=== PATIENT | male | born 1930 | race Caucasian/White ===

== ENCOUNTER 2017-09-12 10:52 | Inpatient (IN) | payer MEDICARE ==
[~2017-09-12] VITALS: Ht 180.3 cm; Wt 91.8 kg
[~2017-09-12 10:52] MED LIST: CALC-128 PO; CETI10CA PO; CETI10TA22 PO; FERR325T58 PO; MULT-658 PO; VITA400C36 PO
--- NOTE | 2017-09-12 11:32 | PHYS DOC ---
Past Medical History Past Medical History: No Pertinent History Past Surgical History: Other Additional Past Surgical Histo: right knee. suprapubic catheter, cataracts Alcohol Use: None Drug Use: None Adult General Chief Complaint Chief Complaint: MECHANICAL FALL HPI HPI Patient is a 87 year old male who presents with accidental fall while doing lawn. Patient states he turned and tripped and landed on his right hip and thigh. Reports pain to his right femur. No attempted weightbearing secondary to the pain. No motor weakness or loss of sensation. Patient denies hitting his head or neck. Denies headache, neck pain. He is not currently on anticoagulation therapy. Patient arrives by EMS. Fentanyl given prior to ED arrival [] Review of Systems Review of Systems ROS as per HPI. All other ROS are negative. Allergies Allergies Allergies Coded Allergies Type Severity Reaction Last Updated Verified Sulfa (Sulfonamide Antibiotics) Allergy Intermediate Itching 10/04/15 Yes Physical Exam Physical Exam Constitutional: Well developed, well nourished, no acute distress, non-toxic appearance. [] HENT: Normocephalic, atraumatic, bilateral external ears normal, oropharynx moist, no oral exudates, nose normal. [] Eyes: PERRLA, EOMI, conjunctiva normal, no discharge. [] Neck: Normal range of motion, no tenderness, supple, no stridor. [] Cardiovascular:Heart rate regular rhythm, no murmur [] Lungs & Thorax: Bilateral breath sounds clear to auscultation [] Abdomen: Bowel sounds normal, soft, no tenderness, no masses, no pelvic bony tenderness.. [] Skin: Warm, dry, no erythema, no rash. [] Back: No tenderness, no CVA tenderness. [] Extremities: Right lower extremity, no deformity, rotation or shortening. Pain/ tenderness to right anterior lateral thigh. No knee pain tenderness or deformity.. [] Neurologic: Alert and oriented X 3, right lower extremity, no motor weakness or loss of sensation. [] Psychologic: Affect normal, judgement normal, mood normal. [] Current Patient Data Vital Signs Vital Signs Date Time Temp Pulse Resp B/P (MAP) Pulse Ox O2 Delivery O2 Flow Rate FiO2 09/12/17 12:30 61 17 94 09/12/17 11:02 97.4 154/79 (104) Room Air 97.4 EKG EKG [] Radiology/Procedures Radiology/Procedures [Pelvis:/Right hip: Minimally displaced right intertrochanteric fracture. Chest x-ray: No acute cardiopulmonary disease on preliminary ED read] Course & Med Decision Making Course & Med Decision Making Pertinent Labs and Imaging studies reviewed. (See chart for details) [Dr. Weiss to admit. Dr. Mullins to see in consult.] Dragon Disclaimer Dragon Disclaimer This electronic medical record was generated, in whole or in part, using a voice recognition dictation system. Departure Departure Impression: Primary Impression: Hip fracture, right Additional Impression: UTI (urinary tract infection) Disposition: ADMITTED INPATIENT Admitting Physician: Buck Weiss Condition: STABLE Referrals: BUCK WEISS MD (PCP) Problem Qualifiers MAYANK DELATORRE DO Sep 12, 2017 11:32
--- NOTE | 2017-09-12 12:17 | RAD ---
Examination: 2 views of the right hip and right femur History: History of fall, hip pain Comparison: None available Findings: Minimally displaced intertrochanteric fracture right femur. The bilateral femoral heads are within the acetabula. Osseous demineralization limits evaluation Impression: Mild displaced intertrochanteric fracture right femur.
--- NOTE | 2017-09-12 12:19 | RAD ---
Examination: Single frontal view the chest. History: History of fall, fracture. Comparison: 04/01/2016 Findings The cardiomediastinal silhouette grossly appears unchanged. There is no acute infiltrate or visualize pneumothorax. Tortuous appearing aorta. Impression: No acute cardiopulmonary findings.
--- NOTE | 2017-09-12 13:05 | EKG ---
[facility] [address] [place] [address] Test Date: 2017-09-12 Test Time: 13:02:41 Pat Name: CAROLINA XIE Department: Room: Gender: M Data Abstractor: : 1930 Requested By: MAYANK DELATORRE Order Number: [id number] Reading MD: Shelbi Garcia Measurements Intervals [place] Rate: 64 P: ME: QRS: -168 QRSD: 96 T: 129 QT: 416 QTc: 433 Interpretive Statements SINUS RHYTHM, VENTRICULAR PREMATURE COMPLEX(ES), TRIGEMINY ABNORMAL RIGHT SUPERIOR AXIS DEVIATION QRS(T) CONTOUR ABNORMALITY CONSISTENT WITH HIGH LATERAL INFARCT AGE UNDETERMINED ABNORMAL ECG Electronically Signed On 09-14-2017 15:28:52 CDT by Shelbi Garcia
[2017-09-12] MEDS ORDERED: ONDANSETRON PF 4 MG/2 ML VIAL. IV PRN ×2 (13:15→14:45)
[2017-09-12] MEDS ORDERED: MORPHINE SULFATE 2 MG/ML DISP.SYRIN. IV PRN ×2 (13:15→14:45)
[2017-09-12 13:31] LABS: BILIRUBIN,URINE NEGATIVE (NEG); GLUCOSE,URINE NEGATIVE (NEG); NITRITE,URINE NEGATIVE (NEG); PH,URINE 6.5; PROTEIN,URINE 100 mg/dL (NEG-TRACE); UROBILINOGEN,URINE 0.2 mg/dL (0.2 mg/dL)
[2017-09-12 13:32] LABS: BASO % 0 % (0-3); EOS % 1 % (0-3); LYMPH # 0.7 x10^3/uL (1.0-4.8); LYMPH % 6 % (24-48); MEAN CORPUSCULAR HEMOGLOBIN 30 pg (25-35); MEAN CORPUSCULAR HGB CONC 33 g/dL (31-37); MEAN CORPUSCULAR VOLUME 89 fL (79-100); MONO % 6 % (0-9); NEUT % 87 % (31-73); PLATELET COUNT 149 x10^3/uL (140-400); RED CELL DISTRIBUTION WIDTH 15.4 % (11.5-14.5); WHITE BLOOD COUNT 10.5 x10^3/uL (4.0-11.0)
[2017-09-12 13:38] LABS: WBC,URINE TNTC /HPF (0-4)
[2017-09-12 13:39] LABS: BACTERIA,URINE MODERATE /HPF (0-FEW)
[2017-09-12 13:40] LABS: RBC,URINE FOBS /HPF (0-2)
[2017-09-12 13:43] LABS: INR 1.1 (0.8-1.1); PROTHROMBIN TIME PATIENT 13.6 SEC (11.7-14.0)
[2017-09-12 13:45] LABS: CALCIUM 9.3 mg/dL (8.5-10.1); CREATININE 1.9 mg/dL (0.7-1.3); GFR 33.6; POTASSIUM 4.5 mmol/L (3.5-5.1)
[2017-09-12 13:51] LABS: ALBUMIN 3.6 g/dL (3.4-5.0); ALBUMIN/GLOBULIN RATIO 0.8 (1.0-1.7); TOTAL BILIRUBIN 0.5 mg/dL (0.2-1.0); TOTAL PROTEIN 7.9 g/dL (6.4-8.2)
[2017-09-12 13:56] LABS: % EOS 1 % (0-5); PLT ESTIMATE ADEQUATE (ADEQUATE)
[2017-09-12] MEDS ORDERED: BUPIVACAINE-EPI 0.25%-1:200000 50 ML VIAL. ONE (14:01)
[2017-09-12] MEDS ORDERED: IV RINGERS,LACTATED 1000ML 1,000 ML IV SCH (14:40)
[2017-09-12] MEDS ORDERED: fentaNYL PF VIAL 100 MCG/2 ML VIAL IV PRN ×2 (14:45)
[2017-09-12] MEDS ORDERED: PROCHLORPERAZINE 10 MG/2 ML VIAL. IV PRN (14:45)
[2017-09-12] MEDS ORDERED: LIDOCAINE 1% PF 2 ML VIAL. ID PRN (14:45)
[2017-09-12] MEDS ORDERED: HYDROmorphone 2 MG/ML VIAL IV PRN (14:45)
[2017-09-12] MEDS ORDERED: SEVOFLURANE 16 TO 30 MINUTES. IH ONE (15:26)
[2017-09-12] MEDS ORDERED: fentaNYL PF VIAL 100 MCG/2 ML VIAL ONE (15:26)
[2017-09-12] MEDS ORDERED: PROPOFOL 20 ML IV ONE (15:27)
[2017-09-12] MEDS ORDERED: LIDOCAINE 2% PF Vial for OR 5 ML VIAL. ONE (15:27)
[2017-09-12] MEDS ORDERED: ceFAZolin SODIUM 1 GM in IV DEXTROSE 5% 50 ML IV PRN (15:45)
[2017-09-12] MEDS ORDERED: PHENYLEPHRINE in 0.9% NACL PF 1 MG/10 ML DISP.SYRIN. IV ONE (16:04)
[2017-09-12] MEDS ORDERED: DEXAMETHASONE SOD PHOS 20 MG/5 ML VIAL. ONE (16:04)
[2017-09-12] MEDS ORDERED: ONDANSETRON PF 4 MG/2 ML VIAL. ONE (16:04)
--- NOTE | 2017-09-12 17:36 | PDOC4 ---
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 COMPLICATIONS: none INDICATIONS: The patient is an 87 year old male who fell sustaining an intertrochanteric hip fracture. The patient and I and the patient's family discussed the risks and benefits and alternatives of treatment. The alternative for treatment is bedrest until the fracture feels well, which is generally not well tolerated due to the risks of bedsores, blood clots, pneumonia, and deconditioning. I recommended intramedullary nailing, and I talked to them about the potential risks of this including risks of bleeding, infection, blood clots, malunion, nonunion, hardware failure, or other potential surgical or anesthetic complications. All of their questions were answered about surgery and they desired to proceed. A written consent was obtained. OPERATIVE PROCEDURE: The patient was identified in the preoperative holding area. The correct hip was marked by myself. The patient was taken to the operating room, where they were placed under general anesthesia. Preoperative antibiotics were given IV. The HANA table was used and the well leg was placed in a padded lithotomy leg frias, while the foot of the fractured leg was placed in a well padded traction foot boot. A time-out procedure was performed. The image intensifier was used, and a preliminary reduction was obtained at the fracture site. The hip area was prepped and draped in the normal sterile fashion with chloraprep and an ioban shower curtain style drape. 4 blue sterile OR towels were applied to the leg with windy prior to the ioban drape being placed. An incision was made over the superior aspect of the greater trochanter. A guide pin was placed at the tip of the greater trochanter and a starting awl was used to open the proximal canal. A ball tipped guidewire was then placed in the canal, and the fracture remained adequately reduced. The femur was reamed 2 mm over the size of the nail to a 13 mm reamer to approximately the level of the femur just past the lesser trochanter. The proximal piece was reamed with the 15 mm opening reamer. The intramedullary nail was attached to a guide and then was placed down the canal and positioned appropriately using the image intensifier. Using the targeting guide, a second incision was placed on the lateral aspect of the femur and a guide pin was placed into the center of the femoral head under fluoroscopic guidance. The guide wire was measured and the tunnel was reamed for an appropriate length lag screw under fluoroscopy, ensuring not to puncture the femoral head. The lag screw was placed, and approximately 10mm of compression was obtained after releasing traction from the HANA table, watching the fracture compress under image intensification. A proximal locking screw was then placed in the lag screw. Finally, a distal cross lock screw was placed using the triple sleeve device through the guide. Screw position and length were confirmed with the image intensifier. Satisfactory reduction and fixation were confirmed using the image intensifier in multiple planes. Copius irrigation was used and the incision was closed in layers with 0-vicryl for the fascia where possible, and 3-0 monocryl interrupted buried for deep tissues. A prineo was used for skin. 50 cc of 0.25% marcaine with epi was injected for pain relief into the incisions. A sterile dressing was applied and the patient was gently transferred from the fracture table back to the OR bed. The patient's leg length and rotation were checked prior to extubation. The patient was awaken in the OR and was transferred to the PACU in stable condition. ELISHA TAI MD Sep 12, 2017 17:36
[2017-09-12 17:40] VITALS: BP 137/80
[2017-09-12] MEDS: ACETAMINOPHEN 500 MG TABLET PO SCH (18:00)
[2017-09-12] MEDS: IV NORMAL SALINE 1000ML BAG 1,000 ML IV SCH (18:08)
[2017-09-12 19:00] VITALS: BP 102/66
[2017-09-12] MEDS: HEPARIN PF for SUB-Q USE 5,000 UNIT/0.5 ML VIAL. SQ SCH (22:00)
--- NOTE | 2017-09-12 22:15 | PDOC2 ---
CONSULT Date of Consult Date of Consult DATE: 09/12/17 TIME: 16:00 Reason for Consult Reason for Consult: right hip fracture Identification/Chief Complaint Chief Complaint right hip pain Problems: Source Source: Chart review, Patient History of Present Illness Reason for Visit: The patient is an 87 year old male who fell today while mowing his lawn. He was unable to ambulate and was taken to the ER, Xrays revealed a displaced right intertrochanteric femur fracture. Past Medical History Past Medical History urinary issues Past Surgical History Past Surgical History suprapubic catheter Family History Family History noncontributory Social History Social History lives alone, the patient's recently. No ALCOHOL: none Drugs: None Lives: Alone Current Problem List Problem List Problems Medical Problems: (1) UTI (urinary tract infection) Status: Acute Current Medications Current Medications Current Medications Ondansetron HCl (Zofran) 4 mg PRN Q8HRS PRN IV NAUSEA/VOMITING; Start at 13:15; Stop 09/13/17 at 13:14 Morphine Sulfate 2 mg PRN Q2HR PRN IV PAIN; Start 09/12/17 at 13:15; Stop at 13:14 Ondansetron HCl (Zofran) 4 mg PRN Q6HRS PRN IV NAUSEA/VOMITING; Start at 14:45; Stop 09/13/17 at 14:44 Fentanyl Citrate (Fentanyl 2ml Vial) 25 mcg PRN Q5MIN PRN IV MILD PAIN; Start 09/12/17 at 14:45; Stop 09/13/17 at 14:44 Fentanyl Citrate (Fentanyl 2ml Vial) 50 mcg PRN Q5MIN PRN IV MODERATE PAIN; Start 09/12/17 at 14:45; Stop 09/13/17 at 14:44 Morphine Sulfate 1 mg PRN Q10MIN PRN IV SEVERE PAIN; Start 09/12/17 at 14:45; Stop 09/13/17 at 14:44 Ringer's Solution 1,000 ml @ 30 mls/hr Q24H IV ; Start 09/12/17 at 14:40; Stop 09/13/17 at 02:39 Lidocaine HCl (Xylocaine-Mpf 1% Vial) 2 ml 1X PRN PRN ID IV START; Start 09/12 at 14:45; Stop 09/13/17 at 14:44 Hydromorphone HCl (Dilaudid) 0.5 mg PRN Q10MIN PRN IV SEV PAIN, Second choice; Start 09/12/17 at 14:45; Stop 09/13/17 at 14:44 Prochlorperazine Edisylate (Compazine) 5 mg PACU PRN PRN IV NAUSEA, MRX1; Start 09/12/17 at 14:45; Stop 09/13/17 at 14:44 Bupivacaine HCl/ Epinephrine Bitart (Marcaine-Epi 0.25%-1:838366) 50 ml STK-MED ONCE .ROUTE Last administered on 09/12/17t 17:12; Start 09/12/17 at 14:01; Stop 09/12/17 at 15:03; Status DC Fentanyl Citrate (Fentanyl 2ml Vial) 100 mcg STK-MED ONCE .ROUTE ; Start at 15:26; Stop 09/12/17 at 15:27; Status DC Sevoflurane (Ultane) 15 ml STK-MED ONCE IH ; Start 09/12/17 at 15:26; Stop at 15:27; Status DC Propofol 20 ml @ As Directed STK-MED ONCE IV ; Start 09/12/17 at 15:27; Stop 09/12/17 at 15:28; Status DC Lidocaine HCl (Lidocaine Pf 2% Vial) 5 ml STK-MED ONCE .ROUTE ; Start 09/12/17 at 15:27; Stop 09/12/17 at 15:28; Status DC Cefazolin Sodium 50 ml @ As Directed STK-MED ONCE IV ; Start 09/12/17 at 15:35 ; Stop 09/12/17 at 15:36; Status DC Cefazolin Sodium 1 gm/Dextrose 50 ml @ 100 mls/hr 1X PREOP PRN IV PRIOR TO PROCEDURE; Start 09/12/17 at 15:45; Status UNV Cefazolin Sodium 50 ml @ 100 mls/hr 1X ONCE IV Last administered on t 15:50; Start 09/12/17 at 16:00; Stop 09/12/17 at 16:29; Status DC Phenylephrine HCl 1 mg STK-MED ONCE IV ; Start 09/12/17 at 16:04; Stop at 16:05; Status DC Dexamethasone Sodium Phosphate (Decadron) 20 mg STK-MED ONCE .ROUTE ; Start at 16:04; Stop 09/12/17 at 16:05; Status DC Ondansetron HCl (Zofran) 4 mg STK-MED ONCE .ROUTE ; Start 09/12/17 at 16:04; Stop 09/12/17 at 16:05; Status DC Cefazolin Sodium 1 gm/Sodium Chloride 50 ml @ 100 mls/hr Q8H IV ; Start at 00:00; Stop 09/13/17 at 08:29 Heparin Sodium (Porcine) (Heparin Sq) 5,000 unit Q8HRS SQ ; Start 09/12/17 at 22:00 Tramadol HCl (Ultram) 50 mg PRN Q6HRS PRN PO PAIN; Start 09/12/17 at 17:30 Acetaminophen (Tylenol) 1,000 mg Q6HRS PO ; Start 09/12/17 at 18:00 Sodium Chloride 1,000 ml @ 125 mls/hr Q8H IV ; Start 09/12/17 at 18:08; Stop 09/13/17 at 06:07 Active Scripts Active Reported Calcium 500 Mg Tablet (Calcium Carb&Cit/Mag12/Vit D3) 1 Each Tablet 1 Each PO Centrum Silver Tablet (Multivits-Min/Fa/Lycopene/Lut) 1 Each Tablet 1 Each PO DAILY Allergies Allergies: Coded Allergies: Sulfa (Sulfonamide Antibiotics) (Verified Allergy, Intermediate, Itching, 09/12/17) ROS General: No: Chills, Night Sweats, Fatigue, Malaise, Appetite, Other Musculoskeletal: Yes Gait Disturbance, Yes Joint Pain, Yes Joint Swelling Physical Exam General: Alert, Oriented X3, Cooperative HEENT: Atraumatic Lungs: Normal air movement Heart: Regular rate MUSCULOSKELETAL: Other (RIGHT LOWER EXTREMITY shortened and externally rotated. neurovascularly intact distally. pain with log roll. ) Vitals VITALS Vital Signs Date Time Temp Pulse Resp B/P (MAP) Pulse Ox O2 Delivery O2 Flow Rate FiO2 09/12/17 19:00 97.7 79 18 102/66 (78) 96 Room Air 97.7 09/12/17 18:10 2 Labs Labs Laboratory Tests Test 09/12/17 13:10 09/12/17 13:25 Urine Collection Type U cath Urine Color Yellow Urine Clarity Cloudy Urine pH 6.5 Urine Specific [place] 1.015 Urine Protein 100 mg/dL (NEG-TRACE) Urine Glucose (UA) Negative mg/dL (NEG) Urine Ketones (Stick) Negative mg/dL (NEG) Urine Blood Moderate (NEG) Urine Nitrite Negative (NEG) Urine Bilirubin Negative (NEG) Urine Urobilinogen Dipstick 0.2 mg/dL (0.2 mg/dL) Urine Leukocyte Esterase Large (NEG) Urine RBC Fobs /HPF (0-2) Urine WBC Tntc /HPF (0-4) Urine Amorphous Sediment Present /HPF Urine Bacteria Moderate /HPF (0-FEW) White Blood Count 10.5 x10^3/uL (4.0-11.0) Red Blood Count 4.40 x10^6/uL (4.30-5.70) Hemoglobin 13.0 g/dL (13.0-17.5) Hematocrit 39.0 % (39.0-53.0) Mean Corpuscular Volume 89 fL (79-100) Mean Corpuscular Hemoglobin 30 pg (25-35) Mean Corpuscular Hemoglobin Concent 33 g/dL (31-37) Red Cell Distribution Width 15.4 % (11.5-14.5) Platelet Count 149 x10^3/uL (140-400) Neutrophils (%) (Auto) 87 % (31-73) Lymphocytes (%) (Auto) 6 % (24-48) Monocytes (%) (Auto) 6 % (0-9) Eosinophils (%) (Auto) 1 % (0-3) Basophils (%) (Auto) 0 % (0-3) Neutrophils # (Auto) 9.1 x10^3uL (1.8-7.7) Lymphocytes # (Auto) 0.7 x10^3/uL (1.0-4.8) Monocytes # (Auto) 0.7 x10^3/uL (0.0-1.1) Eosinophils # (Auto) 0.1 x10^3/uL (0.0-0.7) Basophils # (Auto) 0.0 x10^3/uL (0.0-0.2) Segmented Neutrophils % 77 % (35-66) Band Neutrophils % 11 % (0-9) Lymphocytes % 6 % (24-48) Monocytes % 5 % (0-10) Eosinophils % 1 % (0-5) Platelet Estimate Adequate (ADEQUATE) Prothrombin Time 13.6 SEC (11.7-14.0) Prothromb Time International Ratio 1.1 (0.8-1.1) Sodium Level 140 mmol/L (136-145) Potassium Level 4.5 mmol/L (3.5-5.1) Chloride Level 105 mmol/L (98-107) Carbon Dioxide Level 29 mmol/L (21-32) Anion Gap 6 (6-14) Blood Urea Nitrogen 29 mg/dL (8-26) Creatinine 1.9 mg/dL (0.7-1.3) Estimated GFR (Cockcroft-Gault) 33.6 BUN/Creatinine Ratio 15 (6-20) Glucose Level 107 mg/dL (70-99) Calcium Level 9.3 mg/dL (8.5-10.1) Total Bilirubin 0.5 mg/dL (0.2-1.0) Aspartate Amino Transf (AST/SGOT) 15 U/L (15-37) Alanine Aminotransferase (ALT/SGPT) 19 U/L (16-63) Alkaline Phosphatase 68 U/L (46-116) Total Protein 7.9 g/dL (6.4-8.2) Albumin 3.6 g/dL (3.4-5.0) Albumin/Globulin Ratio 0.8 (1.0-1.7) Laboratory Tests Test 09/12/17 13:10 09/12/17 13:25 Urine Collection Type U cath Urine Color Yellow Urine Clarity Cloudy Urine pH 6.5 Urine Specific [place] 1.015 Urine Protein 100 mg/dL (NEG-TRACE) Urine Glucose (UA) Negative mg/dL (NEG) Urine Ketones (Stick) Negative mg/dL (NEG) Urine Blood Moderate (NEG) Urine Nitrite Negative (NEG) Urine Bilirubin Negative (NEG) Urine Urobilinogen Dipstick 0.2 mg/dL (0.2 mg/dL) Urine Leukocyte Esterase Large (NEG) Urine RBC Fobs /HPF (0-2) Urine WBC Tntc /HPF (0-4) Urine Amorphous Sediment Present /HPF Urine Bacteria Moderate /HPF (0-FEW) White Blood Count 10.5 x10^3/uL (4.0-11.0) Red Blood Count 4.40 x10^6/uL (4.30-5.70) Hemoglobin 13.0 g/dL (13.0-17.5) Hematocrit 39.0 % (39.0-53.0) Mean Corpuscular Volume 89 fL (79-100) Mean Corpuscular Hemoglobin 30 pg (25-35) Mean Corpuscular Hemoglobin Concent 33 g/dL (31-37) Red Cell Distribution Width 15.4 % (11.5-14.5) Platelet Count 149 x10^3/uL (140-400) Neutrophils (%) (Auto) 87 % (31-73) Lymphocytes (%) (Auto) 6 % (24-48) Monocytes (%) (Auto) 6 % (0-9) Eosinophils (%) (Auto) 1 % (0-3) Basophils (%) (Auto) 0 % (0-3) Neutrophils # (Auto) 9.1 x10^3uL (1.8-7.7) Lymphocytes # (Auto) 0.7 x10^3/uL (1.0-4.8) Monocytes # (Auto) 0.7 x10^3/uL (0.0-1.1) Eosinophils # (Auto) 0.1 x10^3/uL (0.0-0.7) Basophils # (Auto) 0.0 x10^3/uL (0.0-0.2) Segmented Neutrophils % 77 % (35-66) Band Neutrophils % 11 % (0-9) Lymphocytes % 6 % (24-48) Monocytes % 5 % (0-10) Eosinophils % 1 % (0-5) Platelet Estimate Adequate (ADEQUATE) Prothrombin Time 13.6 SEC (11.7-14.0) Prothromb Time International Ratio 1.1 (0.8-1.1) Sodium Level 140 mmol/L (136-145) Potassium Level 4.5 mmol/L (3.5-5.1) Chloride Level 105 mmol/L (98-107) Carbon Dioxide Level 29 mmol/L (21-32) Anion Gap 6 (6-14) Blood Urea Nitrogen 29 mg/dL (8-26) Creatinine 1.9 mg/dL (0.7-1.3) Estimated GFR (Cockcroft-Gault) 33.6 BUN/Creatinine Ratio 15 (6-20) Glucose Level 107 mg/dL (70-99) Calcium Level 9.3 mg/dL (8.5-10.1) Total Bilirubin 0.5 mg/dL (0.2-1.0) Aspartate Amino Transf (AST/SGOT) 15 U/L (15-37) Alanine Aminotransferase (ALT/SGPT) 19 U/L (16-63) Alkaline Phosphatase 68 U/L (46-116) Total Protein 7.9 g/dL (6.4-8.2) Albumin 3.6 g/dL (3.4-5.0) Albumin/Globulin Ratio 0.8 (1.0-1.7) Images Images xrays of the right hip reveal a midly displaced intertrochanteric femur fracture Assessment/Plan Assessment/Plan The patient is an 87 year old male with a right intertrochanteric femur fracture. We discussed non-operative versus operative treatment of the patient's hip fracture. The risks of surgery including the risk of undergoing anesthesia, bleeding, infection, nerve damage, malunion, and nonunion, loss of fixation, and blood clots were discussed at length. The benefits of surgery including pain relief and functional improvement of the hip were also discussed. We also discussed the postoperative course required after surgery. After a thorough discussion of the risks and benefits of an intramedullary nail fixation of her right intertrochanteric femur fracture with the patient and his family, they elected to proceed with surgery. The patient exhibited understanding of the risks and benefits of surgery, and all questions were answered. We will proceed later this afternoon. ELISHA TAI MD Sep 12, 2017 22:15
[2017-09-12 23:00] VITALS: BP 102/59
[2017-09-13] VITALS (7 sets, daily range): BP systolic 99–117; BP diastolic 58–73
[2017-09-13] MEDS: IV NORMAL SALINE 1000ML BAG 1,000 ML IV SCH (00:22)
[2017-09-13 05:21] LABS: BASO % 0 % (0-3); EOS % 0 % (0-3); HEMATOCRIT 34.5 % (39.0-53.0); HEMOGLOBIN 11.5 g/dL (13.0-17.5); LYMPH # 1.1 x10^3/uL (1.0-4.8); LYMPH % 13 % (24-48); MEAN CORPUSCULAR HEMOGLOBIN 30 pg (25-35); MEAN CORPUSCULAR HGB CONC 33 g/dL (31-37); MEAN CORPUSCULAR VOLUME 90 fL (79-100); MONO % 6 % (0-9); NEUT % 81 % (31-73); PLATELET COUNT 141 x10^3/uL (140-400); RED BLOOD COUNT 3.85 x10^6/uL (4.30-5.70); RED CELL DISTRIBUTION WIDTH 15.4 % (11.5-14.5); WHITE BLOOD COUNT 8.6 x10^3/uL (4.0-11.0)
[2017-09-13] MEDS: ACETAMINOPHEN 500 MG TABLET PO SCH ×4 (06:00→18:00)
[2017-09-13 06:03] LABS: CALCIUM 8.6 mg/dL (8.5-10.1); CREATININE 1.9 mg/dL (0.7-1.3); GFR 33.6
[2017-09-13] MEDS: HEPARIN PF for SUB-Q USE 5,000 UNIT/0.5 ML VIAL. SQ SCH ×3 (06:50→22:00)
--- NOTE | 2017-09-13 07:35 | RAD ---
Portable right hip, 2 views, 09/12/2017: History: Postop evaluation Comparison is made to a study from earlier the same day. An internal fixation device has been placed transfixing the comminuted intertrochanteric fracture of the right hip. The major fracture fragments are in good position. There is mild proximal and medial displacement of a lesser trochanteric fracture fragment. The femoral head is seated within the acetabulum. There is no evidence of a retained surgical instrument, needle or radiopaque sponge on these 2 views. IMPRESSION: Interval reduction and internal fixation of the intertrochanteric right hip fracture.
--- NOTE | 2017-09-13 09:22 | PDOC1 ---
H & P H&P HPI Mr. Jesus Manley is an 87-year-old male who was admitted yesterday after a fall, was mowing his lawn. He subsequently was down for about an hour before he could find a neighbor to assist him in seeking medical attention. He was found to have a right intertrochanteric femur fracture on x-ray in the ED. He was then taken to surgery yesterday intramedullary nail fixation. This morning he is feeling well, states pain is well-controlled. He plans to eventually go back home independently. He lives alone as his recently. He does have family who live nearby. Constitutional: Denies fever, fatigue, chills HEENT: Denies sore throat, vision changes Cardio: Denies chest pain, dyspnea, syncope, palpitations, edema Pulmonary: Denies shortness of breath, cough, wheezing and sputum production GI: Denies nausea, vomiting, diarrhea, constipation : Denies dysuria, frequency Skin: Denies new lesions Neuro: Denies weakness, paresthesias ED course: Chest x-ray was unremarkable. Right hip x-ray was remarkable for right intertrochanteric mildly displaced femur fracture. PMH: CKD stage III, HTN, BPH, osteoarthritis arthritis of the right knee, anemia FamHx: Father had heart attack, daughter has hypertension Social Hx: never smoker, no drug use, no significant alcohol use SurgHx: suprapubic catheter placement then take down, prostate procedure, R knee surgery Vital signs are stable, afebrile. Physical exam: Gen.: Alert, oriented, no acute distress HEENT: Pupils are equal round reactive, nonicteric Lungs: CTAB, no wheezes or significant rales appreciated. Heart: Regular rate and rhythm, no murmur Extremities: No cyanosis or edema noted in the bilateral lower extremities, bandage over incisions is C/D/I Skin: No new lesions Neuro: nonfocal Psych: Alert, oriented, cooperative with exam Labs were reviewed Allergies reviewed Medications were reviewed and reconciled. He takes no home prescription medications, only takes calcium and vitamin D and Centrum Silver. Imaging was reviewed Assessment and plan Right intertrochanteric femur fracture status post intramedullary nail fixation - Dr. Mullins is following. Pain is well-controlled. Hypertension - monitor, requires no medications CKD stage III - monitor, baseline between 1.6-1.75 BPH - previously had suprapubic catheter, now uses intermittent catheterization approximately once per day and voids normally throughout the rest of the day Anemia - appears to be at baseline, monitor PT/OT consulted. Dispo pending ability to ambulate, likely tomorrow. TILA NIELSON MD Sep 13, 2017 09:22
[2017-09-13] MEDS: traMADol 50 MG TABLET PO PRN (09:48)
--- NOTE | 2017-09-13 10:36 | PDOC ---
PROGRESS NOTES Subjective Subjective Problems overnight: No acute issues. pain well controlled. has not been out of bed yet. Objective Vital Signs Vital Signs Date Time Temp Pulse Resp B/P (MAP) Pulse Ox O2 Delivery O2 Flow Rate FiO2 09/13/17 09:48 Room Air 09/13/17 08:32 97.4 64 18 115/66 (82) 90 97.4 09/12/17 20:00 2.0 Physical Exam RLE dressing cdi. removed, incision cdi with prineo in place. no swelling distally. nvi distally. Labs Laboratory Tests Test 09/12/17 13:10 09/12/17 13:25 09/13/17 04:36 Urine Collection Type U cath Urine Color Yellow Urine Clarity Cloudy Urine pH 6.5 Urine Specific Taylor 1.015 Urine Protein 100 mg/dL (NEG-TRACE) Urine Glucose (UA) Negative mg/dL (NEG) Urine Ketones (Stick) Negative mg/dL (NEG) Urine Blood Moderate (NEG) Urine Nitrite Negative (NEG) Urine Bilirubin Negative (NEG) Urine Urobilinogen Dipstick 0.2 mg/dL (0.2 mg/dL) Urine Leukocyte Esterase Large (NEG) Urine RBC Fobs /HPF (0-2) Urine WBC Tntc /HPF (0-4) Urine Amorphous Sediment Present /HPF Urine Bacteria Moderate /HPF (0-FEW) White Blood Count 10.5 x10^3/uL (4.0-11.0) 8.6 x10^3/uL (4.0-11.0) Red Blood Count 4.40 x10^6/uL (4.30-5.70) 3.85 x10^6/uL (4.30-5.70) Hemoglobin 13.0 g/dL (13.0-17.5) 11.5 g/dL (13.0-17.5) Hematocrit 39.0 % (39.0-53.0) 34.5 % (39.0-53.0) Mean Corpuscular Volume 89 fL (79-100) 90 fL (79-100) Mean Corpuscular Hemoglobin 30 pg (25-35) 30 pg (25-35) Mean Corpuscular Hemoglobin Concent 33 g/dL (31-37) 33 g/dL (31-37) Red Cell Distribution Width 15.4 % (11.5-14.5) 15.4 % (11.5-14.5) Platelet Count 149 x10^3/uL (140-400) 141 x10^3/uL (140-400) Neutrophils (%) (Auto) 87 % (31-73) 81 % (31-73) Lymphocytes (%) (Auto) 6 % (24-48) 13 % (24-48) Monocytes (%) (Auto) 6 % (0-9) 6 % (0-9) Eosinophils (%) (Auto) 1 % (0-3) 0 % (0-3) Basophils (%) (Auto) 0 % (0-3) 0 % (0-3) Neutrophils # (Auto) 9.1 x10^3uL (1.8-7.7) 7.0 x10^3uL (1.8-7.7) Lymphocytes # (Auto) 0.7 x10^3/uL (1.0-4.8) 1.1 x10^3/uL (1.0-4.8) Monocytes # (Auto) 0.7 x10^3/uL (0.0-1.1) 0.5 x10^3/uL (0.0-1.1) Eosinophils # (Auto) 0.1 x10^3/uL (0.0-0.7) 0.0 x10^3/uL (0.0-0.7) Basophils # (Auto) 0.0 x10^3/uL (0.0-0.2) 0.0 x10^3/uL (0.0-0.2) Segmented Neutrophils % 77 % (35-66) Band Neutrophils % 11 % (0-9) Lymphocytes % 6 % (24-48) Monocytes % 5 % (0-10) Eosinophils % 1 % (0-5) Platelet Estimate Adequate (ADEQUATE) Prothrombin Time 13.6 SEC (11.7-14.0) Prothromb Time International Ratio 1.1 (0.8-1.1) Sodium Level 140 mmol/L (136-145) 141 mmol/L (136-145) Potassium Level 4.5 mmol/L (3.5-5.1) 5.0 mmol/L (3.5-5.1) Chloride Level 105 mmol/L (98-107) 108 mmol/L (98-107) Carbon Dioxide Level 29 mmol/L (21-32) 26 mmol/L (21-32) Anion Gap 6 (6-14) 7 (6-14) Blood Urea Nitrogen 29 mg/dL (8-26) 29 mg/dL (8-26) Creatinine 1.9 mg/dL (0.7-1.3) 1.9 mg/dL (0.7-1.3) Estimated GFR (Cockcroft-Gault) 33.6 33.6 BUN/Creatinine Ratio 15 (6-20) Glucose Level 107 mg/dL (70-99) 137 mg/dL (70-99) Calcium Level 9.3 mg/dL (8.5-10.1) 8.6 mg/dL (8.5-10.1) Total Bilirubin 0.5 mg/dL (0.2-1.0) Aspartate Amino Transf (AST/SGOT) 15 U/L (15-37) Alanine Aminotransferase (ALT/SGPT) 19 U/L (16-63) Alkaline Phosphatase 68 U/L (46-116) Total Protein 7.9 g/dL (6.4-8.2) Albumin 3.6 g/dL (3.4-5.0) Albumin/Globulin Ratio 0.8 (1.0-1.7) Laboratory Tests Test 09/12/17 13:10 09/12/17 13:25 09/13/17 04:36 Urine Collection Type U cath Urine Color Yellow Urine Clarity Cloudy Urine pH 6.5 Urine Specific Taylor 1.015 Urine Protein 100 mg/dL (NEG-TRACE) Urine Glucose (UA) Negative mg/dL (NEG) Urine Ketones (Stick) Negative mg/dL (NEG) Urine Blood Moderate (NEG) Urine Nitrite Negative (NEG) Urine Bilirubin Negative (NEG) Urine Urobilinogen Dipstick 0.2 mg/dL (0.2 mg/dL) Urine Leukocyte Esterase Large (NEG) Urine RBC Fobs /HPF (0-2) Urine WBC Tntc /HPF (0-4) Urine Amorphous Sediment Present /HPF Urine Bacteria Moderate /HPF (0-FEW) White Blood Count 10.5 x10^3/uL (4.0-11.0) 8.6 x10^3/uL (4.0-11.0) Red Blood Count 4.40 x10^6/uL (4.30-5.70) 3.85 x10^6/uL (4.30-5.70) Hemoglobin 13.0 g/dL (13.0-17.5) 11.5 g/dL (13.0-17.5) Hematocrit 39.0 % (39.0-53.0) 34.5 % (39.0-53.0) Mean Corpuscular Volume 89 fL (79-100) 90 fL (79-100) Mean Corpuscular Hemoglobin 30 pg (25-35) 30 pg (25-35) Mean Corpuscular Hemoglobin Concent 33 g/dL (31-37) 33 g/dL (31-37) Red Cell Distribution Width 15.4 % (11.5-14.5) 15.4 % (11.5-14.5) Platelet Count 149 x10^3/uL (140-400) 141 x10^3/uL (140-400) Neutrophils (%) (Auto) 87 % (31-73) 81 % (31-73) Lymphocytes (%) (Auto) 6 % (24-48) 13 % (24-48) Monocytes (%) (Auto) 6 % (0-9) 6 % (0-9) Eosinophils (%) (Auto) 1 % (0-3) 0 % (0-3) Basophils (%) (Auto) 0 % (0-3) 0 % (0-3) Neutrophils # (Auto) 9.1 x10^3uL (1.8-7.7) 7.0 x10^3uL (1.8-7.7) Lymphocytes # (Auto) 0.7 x10^3/uL (1.0-4.8) 1.1 x10^3/uL (1.0-4.8) Monocytes # (Auto) 0.7 x10^3/uL (0.0-1.1) 0.5 x10^3/uL (0.0-1.1) Eosinophils # (Auto) 0.1 x10^3/uL (0.0-0.7) 0.0 x10^3/uL (0.0-0.7) Basophils # (Auto) 0.0 x10^3/uL (0.0-0.2) 0.0 x10^3/uL (0.0-0.2) Segmented Neutrophils % 77 % (35-66) Band Neutrophils % 11 % (0-9) Lymphocytes % 6 % (24-48) Monocytes % 5 % (0-10) Eosinophils % 1 % (0-5) Platelet Estimate Adequate (ADEQUATE) Prothrombin Time 13.6 SEC (11.7-14.0) Prothromb Time International Ratio 1.1 (0.8-1.1) Sodium Level 140 mmol/L (136-145) 141 mmol/L (136-145) Potassium Level 4.5 mmol/L (3.5-5.1) 5.0 mmol/L (3.5-5.1) Chloride Level 105 mmol/L (98-107) 108 mmol/L (98-107) Carbon Dioxide Level 29 mmol/L (21-32) 26 mmol/L (21-32) Anion Gap 6 (6-14) 7 (6-14) Blood Urea Nitrogen 29 mg/dL (8-26) 29 mg/dL (8-26) Creatinine 1.9 mg/dL (0.7-1.3) 1.9 mg/dL (0.7-1.3) Estimated GFR (Cockcroft-Gault) 33.6 33.6 BUN/Creatinine Ratio 15 (6-20) Glucose Level 107 mg/dL (70-99) 137 mg/dL (70-99) Calcium Level 9.3 mg/dL (8.5-10.1) 8.6 mg/dL (8.5-10.1) Total Bilirubin 0.5 mg/dL (0.2-1.0) Aspartate Amino Transf (AST/SGOT) 15 U/L (15-37) Alanine Aminotransferase (ALT/SGPT) 19 U/L (16-63) Alkaline Phosphatase 68 U/L (46-116) Total Protein 7.9 g/dL (6.4-8.2) Albumin 3.6 g/dL (3.4-5.0) Albumin/Globulin Ratio 0.8 (1.0-1.7) Imaging xrays of the right hip reveal a well placed IMN in the proximal femur. Assessment Assessment POD# 1, S/P R IMN for IT fracture Problems: Plan Plan of Care wbat am labs were ok pain well controlled ambulate with pt dispo pending pt eval. fu 1 week in my office. please dc dinorah when able. he self caths daily at baseline. ELISHA TAI MD Sep 13, 2017 10:36
[2017-09-14 03:00] VITALS: BP 113/64
[2017-09-14] MEDS: ACETAMINOPHEN 500 MG TABLET PO SCH ×5 (06:00→23:18)
[2017-09-14] MEDS: HEPARIN PF for SUB-Q USE 5,000 UNIT/0.5 ML VIAL. SQ SCH ×3 (06:31→23:22)
[2017-09-14 07:00] VITALS: BP 127/67
[2017-09-14 11:00] VITALS: BP 95/59
--- NOTE | 2017-09-14 14:27 | PDOC ---
ORTHO PROGRESS NOTES Subjective The patient is doing well. No acute events overnight. Pain is well controlled. Was able to move around with physical therapy earlier today. Hb stable. He has no associated numbness, tingling, nausea, vomiting, chest pain, shortness of breath, or constipation. His urine came back positive for MRSA and he is now on contact. Post-op Day: 1 Procedure Intramedullary nail Vitals Vital Signs Date Time Temp Pulse Resp B/P (MAP) Pulse Ox O2 Delivery O2 Flow Rate FiO2 09/14/17 11:00 96.1 70 18 95/59 (71) 94 Room Air 96.1 Labs Laboratory Tests Test 09/13/17 04:36 White Blood Count 8.6 x10^3/uL (4.0-11.0) Red Blood Count 3.85 x10^6/uL (4.30-5.70) Hemoglobin 11.5 g/dL (13.0-17.5) Hematocrit 34.5 % (39.0-53.0) Mean Corpuscular Volume 90 fL (79-100) Mean Corpuscular Hemoglobin 30 pg (25-35) Mean Corpuscular Hemoglobin Concent 33 g/dL (31-37) Red Cell Distribution Width 15.4 % (11.5-14.5) Platelet Count 141 x10^3/uL (140-400) Neutrophils (%) (Auto) 81 % (31-73) Lymphocytes (%) (Auto) 13 % (24-48) Monocytes (%) (Auto) 6 % (0-9) Eosinophils (%) (Auto) 0 % (0-3) Basophils (%) (Auto) 0 % (0-3) Neutrophils # (Auto) 7.0 x10^3uL (1.8-7.7) Lymphocytes # (Auto) 1.1 x10^3/uL (1.0-4.8) Monocytes # (Auto) 0.5 x10^3/uL (0.0-1.1) Eosinophils # (Auto) 0.0 x10^3/uL (0.0-0.7) Basophils # (Auto) 0.0 x10^3/uL (0.0-0.2) Sodium Level 141 mmol/L (136-145) Potassium Level 5.0 mmol/L (3.5-5.1) Chloride Level 108 mmol/L (98-107) Carbon Dioxide Level 26 mmol/L (21-32) Anion Gap 7 (6-14) Blood Urea Nitrogen 29 mg/dL (8-26) Creatinine 1.9 mg/dL (0.7-1.3) Estimated GFR (Cockcroft-Gault) 33.6 Glucose Level 137 mg/dL (70-99) Calcium Level 8.6 mg/dL (8.5-10.1) 25-Hydroxy Vitamin D Total 36.6 ng/mL (30.0-100.0) X-Rays Xrays of the right hip reveal well placed intramedullary nail fixation Notes General: alert ,awake, oriented RIGHT LOWER EXTREMITY: dressing clean, dry, and intact., incision clean, dry, and intact. neurovascularly intact distally. Problems: (1) Hip fracture, right Assessment and Plan The patient is an 87 year old male POD 2 status post intramedullary nail fixation of his right intertrochanteric femur fracture. He is currently doing very well, albeit a little unsteady with physical therapy according to his daugthers and nurse. I spoke to him about home versus rehab, it sounds like rehab might be a better option for him. His urine was positive for MRSA. I told him this would put him at increased risk of infection of his incision site and that we will keep a close eye on it. Defer management of his UTI to medicine. Pain control bowel regimen follow-up in my office in 7-10 days. He was given paperwork for the office and information on how to schedule an appointment Otherwise he is weight-bearing as tolerated on the right hip. Problem Qualifiers (1) Hip fracture, right: Encounter type: subsequent encounter Fracture type: closed Fracture healing : with routine healing Qualified Codes: S72.001D - Fracture of unspecified part of neck of right femur, subsequent encounter for closed fracture with routine healing ELISHA TAI MD Sep 14, 2017 14:27
[2017-09-14] MEDS: traMADol 50 MG TABLET PO PRN (14:36)
[2017-09-14 15:00] VITALS: BP 124/61
--- NOTE | 2017-09-14 16:41 | PDOC ---
GENERAL General: vss and afebrile. awake and alert and family present. mrsa on urine culture and will use doxycycline with sulfa allergy and ckdIII. can't raise right thigh off chair he is sitting in and denies due to pain "it just doesn't work since surgery". good distal strength in right leg. wants to go home on dc. chest clear and heart regular. Problems: VITAL SIGNS Vital Signs: Vital Signs Date Time Temp Pulse Resp B/P (MAP) Pulse Ox O2 Delivery O2 Flow Rate FiO2 09/14/17 15:00 98.1 56 18 124/61 (82) 95 Room Air 98.1 ALLERGIES Allergies: Allergies Coded Allergies Type Severity Reaction Last Updated Verified Sulfa (Sulfonamide Antibiotics) Allergy Intermediate Itching 09/12/17 Yes MEDS Medications: Current Medications Medications (Trade) Dose Ordered Sig/Sumanth Start Time Stop Time Status Last Admin Dose Admin Acetaminophen (Tylenol) 1,000 mg Q6HRS 09/12/17 18:00 09/14/17 09:43 1,000 MG Bupivacaine HCl/ Epinephrine Bitart (Marcaine-Epi 0.25%-1:[id number]) 50 ml STK-MED ONCE 09/12/17 14:01 09/12/17 15:03 DC 09/12/17 17:12 50 ML Cefazolin Sodium 1 gm/Dextrose 50 ml @ 100 mls/hr 1X PREOP PRN 09/12/17 15:45 UNV Cefazolin Sodium 1 gm/Sodium Chloride 50 ml @ 100 mls/hr Q8H 09/13/17 00:00 09/13/17 08:29 DC 09/13/17 08:14 100 MLS/HR Dexamethasone Sodium Phosphate (Decadron) 20 mg STK-MED ONCE 09/12/17 16:04 09/12/17 16:05 DC Fentanyl Citrate (Fentanyl 2ml Vial) 100 mcg STK-MED ONCE 09/12/17 15:26 09/12/17 15:27 DC Heparin Sodium (Porcine) (Heparin Sq) 5,000 unit Q8HRS 09/12/17 22:00 09/14/17 14:39 5,000 UNIT Hydromorphone HCl (Dilaudid) 0.5 mg PRN Q10MIN PRN 09/12/17 14:45 09/13/17 14:44 DC Lidocaine HCl (Lidocaine Pf 2% Vial) 5 ml STK-MED ONCE 09/12/17 15:27 09/12/17 15:28 DC Lidocaine HCl (Xylocaine-Mpf 1% Vial) 2 ml 1X PRN PRN 09/12/17 14:45 09/13/17 14:44 DC Morphine Sulfate 1 mg PRN Q10MIN PRN 09/12/17 14:45 09/13/17 14:44 DC Ondansetron HCl (Zofran) 4 mg STK-MED ONCE 09/12/17 16:04 09/12/17 16:05 DC Phenylephrine HCl 1 mg STK-MED ONCE 09/12/17 16:04 09/12/17 16:05 DC Prochlorperazine Edisylate (Compazine) 5 mg PACU PRN PRN 09/12/17 14:45 09/13/17 14:44 DC Propofol 20 ml @ As Directed STK-MED ONCE 09/12/17 15:27 09/12/17 15:28 DC Ringer's Solution 1,000 ml @ 30 mls/hr Q24H 09/12/17 14:40 09/13/17 02:39 DC Sevoflurane (Ultane) 15 ml STK-MED ONCE 09/12/17 15:26 09/12/17 15:27 DC Sodium Chloride 1,000 ml @ 125 mls/hr Q8H 09/12/17 18:08 09/13/17 06:07 DC 09/13/17 00:22 125 MLS/HR Tramadol HCl (Ultram) 50 mg PRN Q6HRS PRN 09/12/17 17:30 09/14/17 14:36 50 MG AMBER SANTOYO MD Sep 14, 2017 16:41
[2017-09-14 19:37] VITALS: BP 105/68
[2017-09-14 22:49] VITALS: BP 110/64
[2017-09-14] MEDS: DOXYCYCLINE HYCLATE 100 MG TABLET PO SCH (23:18)
[2017-09-15 02:55] VITALS: BP 122/66
[2017-09-15] MEDS: ACETAMINOPHEN 500 MG TABLET PO SCH ×3 (06:00→18:01)
[2017-09-15] MEDS: HEPARIN PF for SUB-Q USE 5,000 UNIT/0.5 ML VIAL. SQ SCH ×3 (06:00→20:32)
[2017-09-15 07:00] VITALS: BP 159/60
[2017-09-15] MEDS: DOXYCYCLINE HYCLATE 100 MG TABLET PO SCH ×2 (08:03→20:21)
[2017-09-15 11:00] VITALS: BP 109/54
--- NOTE | 2017-09-15 11:53 | PDOC ---
GENERAL General: vss and afebrile. awake and alert. family in attendance. chest clear and heart regular. still can't flex left thigh. [place] to there tomorrow. Problems: VITAL SIGNS Vital Signs: Vital Signs Date Time Temp Pulse Resp B/P (MAP) Pulse Ox O2 Delivery O2 Flow Rate FiO2 09/15/17 07:40 Room Air 09/15/17 07:00 97.5 65 18 159/60 (93) 95 97.5 ALLERGIES Allergies: Allergies Coded Allergies Type Severity Reaction Last Updated Verified Sulfa (Sulfonamide Antibiotics) Allergy Intermediate Itching 09/12/17 Yes MEDS Medications: Current Medications Medications (Trade) Dose Ordered Sig/Sumanth Start Time Stop Time Status Last Admin Dose Admin Acetaminophen (Tylenol) 1,000 mg Q6HRS 09/12/17 18:00 09/14/17 23:18 1,000 MG Bupivacaine HCl/ Epinephrine Bitart (Marcaine-Epi 0.25%-1:[id number]) 50 ml STK-MED ONCE 09/12/17 14:01 09/12/17 15:03 DC 09/12/17 17:12 50 ML Cefazolin Sodium 1 gm/Dextrose 50 ml @ 100 mls/hr 1X PREOP PRN 09/12/17 15:45 UNV Cefazolin Sodium 1 gm/Sodium Chloride 50 ml @ 100 mls/hr Q8H 09/13/17 00:00 09/13/17 08:29 DC 09/13/17 08:14 100 MLS/HR Dexamethasone Sodium Phosphate (Decadron) 20 mg STK-MED ONCE 09/12/17 16:04 09/12/17 16:05 DC Doxycycline Hyclate (Vibra-Tab) 100 mg BID 09/14/17 21:00 09/15/17 08:03 100 MG Fentanyl Citrate (Fentanyl 2ml Vial) 100 mcg STK-MED ONCE 09/12/17 15:26 09/12/17 15:27 DC Heparin Sodium (Porcine) (Heparin Sq) 5,000 unit Q8HRS 09/12/17 22:00 09/14/17 23:22 5,000 UNIT Hydromorphone HCl (Dilaudid) 0.5 mg PRN Q10MIN PRN 09/12/17 14:45 09/13/17 14:44 DC Lidocaine HCl (Lidocaine Pf 2% Vial) 5 ml STK-MED ONCE 09/12/17 15:27 09/12/17 15:28 DC Lidocaine HCl (Xylocaine-Mpf 1% Vial) 2 ml 1X PRN PRN 09/12/17 14:45 09/13/17 14:44 DC Morphine Sulfate 1 mg PRN Q10MIN PRN 09/12/17 14:45 09/13/17 14:44 DC Ondansetron HCl (Zofran) 4 mg STK-MED ONCE 09/12/17 16:04 09/12/17 16:05 DC Phenylephrine HCl 1 mg STK-MED ONCE 09/12/17 16:04 09/12/17 16:05 DC Prochlorperazine Edisylate (Compazine) 5 mg PACU PRN PRN 09/12/17 14:45 09/13/17 14:44 DC Propofol 20 ml @ As Directed STK-MED ONCE 09/12/17 15:27 09/12/17 15:28 DC Ringer's Solution 1,000 ml @ 30 mls/hr Q24H 09/12/17 14:40 09/13/17 02:39 DC Sevoflurane (Ultane) 15 ml STK-MED ONCE 09/12/17 15:26 09/12/17 15:27 DC Sodium Chloride 1,000 ml @ 125 mls/hr Q8H 09/12/17 18:08 09/13/17 06:07 DC 09/13/17 00:22 125 MLS/HR Tramadol HCl (Ultram) 50 mg PRN Q6HRS PRN 09/12/17 17:30 09/14/17 14:36 50 MG AMBER SANTOYO MD Sep 15, 2017 11:53
[2017-09-15 15:00] VITALS: BP 131/53
[2017-09-15] MEDS: traMADol 50 MG TABLET PO PRN (15:15)
[2017-09-15 19:38] VITALS: BP 116/64
[2017-09-15] MEDS: LACTOBACILLUS RHAMNOSUS GG 1 CAPSULE. PO SCH (20:21)
[2017-09-15 22:58] VITALS: BP 125/69
[2017-09-16 02:56] VITALS: BP 122/68
[2017-09-16] MEDS: ACETAMINOPHEN 500 MG TABLET PO SCH ×4 (06:00→17:54)
[2017-09-16] MEDS: HEPARIN PF for SUB-Q USE 5,000 UNIT/0.5 ML VIAL. SQ SCH ×3 (06:16→22:45)
[2017-09-16 07:00] VITALS: BP 144/80
--- NOTE | 2017-09-16 08:30 | PDOC ---
Provider Note Provider Note vss, no temp, on doxy re urine mrsa/ does self cath so may be contasminant- rehab pending MADY WEISS MD Sep 16, 2017 08:30
[2017-09-16] MEDS: DOXYCYCLINE HYCLATE 100 MG TABLET PO SCH ×2 (09:57→21:16)
[2017-09-16] MEDS: LACTOBACILLUS RHAMNOSUS GG 1 CAPSULE. PO SCH ×2 (09:57→21:16)
[2017-09-16 11:00] VITALS: BP 110/65
[2017-09-16 15:00] VITALS: BP 114/65
[2017-09-16] MEDS: traMADol 50 MG TABLET PO PRN (15:41)
[2017-09-16 19:00] VITALS: BP 106/60
[2017-09-16 23:00] VITALS: BP 133/75
[2017-09-17 03:00] VITALS: BP 122/77
[2017-09-17] MEDS: ACETAMINOPHEN 500 MG TABLET PO SCH ×2 (06:05)
[2017-09-17] MEDS: HEPARIN PF for SUB-Q USE 5,000 UNIT/0.5 ML VIAL. SQ SCH (06:10)
[2017-09-17 07:15] VITALS: BP 137/69
--- NOTE | 2017-09-17 08:25 | DISCH ---
DISCHARGE FINAL DIAGNOSIS Problems Medical Problems: (1) UTI (urinary tract infection) Status: Acute CONDITION ON DISCHARGE: Stable SNF STAY <30 DAYS: Yes POST DISCHARGE ORDERS ACTIVITY ORDERS: No restrictions WEIGHT BEARING STATUS: No restrictions DIET AFTER DISCHARGE: Regular WOUND/INCISION CARE: Routine catheter care FOLLOW-UP PHYSICIAN FOLLOW-UP: MADY Galvez MD Sep 17, 2017 08:25
--- NOTE | 2017-09-17 08:28 | PDOC ---
Provider Note Provider Note [id number] MADY WEISS MD Sep 17, 2017 08:28
--- NOTE | 2017-09-17 09:28 | DS ---
DATE OF DISCHARGE: 09/17/2017 DATE OF ADMISSION: 09/12/2017 DATE OF DISCHARGE: 09/17/2017 HOSPITAL COURSE: An 87-year-old white male, healthy, who does self urinary catheterization at home. This is his only medical problem and had a fall and was unable to get up and had a right intertrochanteric fracture. CBC was unremarkable as well as the chemistry profile, with creatinine 1.9, which is stable for him, with GFR 34. Vitamin D level normal at 36. Urinalysis showed white blood cells and moderate bacteria, culture grew out 50,000 colonies of MRSA. He was treated with oral doxycycline and improvement in the urine and he had operative repair per Dr. Katie Mullins and he is comfortable and will be followed at [facility] as an outpatient, at this point. FINAL DIAGNOSES: 1. Fracture of the right femoral neck. 2. Urinary tract infection secondary to chronic self catheterization requirement. 3. Chronic kidney disease, stable. OPERATIVE PROCEDURES: Operative repair of the right hip fracture. COMPLICATIONS: None. CONSULTATION: Dr. Mullins. DISCHARGE MEDICATIONS: To take doxycycline for 5 more days, home meds remain the same, pain meds per Dr. Mullins. FOLLOWUP: After orthopedic recommendations, and I will see him in the office for routine followup as well. He will continue with urinary self catheterization at the rehab center as he does at home. His prognosis is good. MADY WEISS MD DR: KERRIE/kitty JOB#: [id number] / [id number]
[2017-09-17] MEDS: traMADol 50 MG TABLET PO PRN (09:53)
[2017-09-17] MEDS: DOXYCYCLINE HYCLATE 100 MG TABLET PO SCH (09:53)
[2017-09-17] MEDS: LACTOBACILLUS RHAMNOSUS GG 1 CAPSULE. PO SCH (09:54)
[2017-09-17 11:02] VITALS: BP 128/71
== END 2017-09-17 12:20 | DRG 481 ==
LOC: ER 10:52 → 4 NORTH 12:30
PROVIDERS: ADMIT Family Medicine; ATTEND Family Medicine
PROC: 0QS606Z Reposition Right Upper Femur with Intramedullary Internal Fixation Device, Open Approach (ICD-10-PCS; principal; 2017-09-12 15:00)
DX: S72.141A Displaced intertrochanteric fracture of right femur, initial encounter for closed fracture (principal); N39.0 Urinary tract infection, site not specified; B95.62 Methicillin resistant Staphylococcus aureus infection as the cause of diseases classified elsewhere; D64.9 Anemia, unspecified; I12.9 Hypertensive chronic kidney disease with stage 1 through stage 4 chronic kidney disease, or unspecified chronic kidney disease; N40.0 Benign prostatic hyperplasia without lower urinary tract symptoms; W01.0XXA Fall on same level from slipping, tripping and stumbling without subsequent striking against object, initial encounter; H26.9 Unspecified cataract; W18.39XA Other fall on same level, initial encounter; Z88.8 Allergy status to other drugs, medicaments and biological substances; Y93.89 Activity, other specified; Y92.89 Other specified places as the place of occurrence of the external cause; Y99.8 Other external cause status; N18.3 Chronic kidney disease, stage 3 (moderate)
CPT/HCPCS: 36415; 51702; 71010; 73502; 73552; 76000; 80048; 80053; 81001; 82306; 85007; 85025; 85610; 87086; 87186; 93005; A4215; C1713; C1887; J0690; J1100; J2370; J2405; J2704; J3010; J7030; 97110; 97116; 97530; 97535; 99285-25; J2001

== ENCOUNTER 2019-02-08 11:20 | Inpatient (IN) | payer MEDICARE ==
[~2019-02-08] VITALS: Ht 182.9 cm; Wt 86.2 kg
[2019-02-08 12:45] LABS: BASO % 0 % (0-3); EOS # 0.4 x10^3/uL (0.0-0.7); EOS % 5 % (0-3); HEMATOCRIT 40.8 % (39.0-53.0); HEMOGLOBIN 13.3 g/dL (13.0-17.5); LYMPH # 1.3 x10^3/uL (1.0-4.8); LYMPH % 18 % (24-48); MEAN CORPUSCULAR HEMOGLOBIN 30 pg (25-35); MEAN CORPUSCULAR HGB CONC 33 g/dL (31-37); MEAN CORPUSCULAR VOLUME 93 fL (79-100); MONO # 0.5 x10^3/uL (0.0-1.1); MONO % 7 % (0-9); NEUT # 5.3 x10^3uL (1.8-7.7); NEUT % 70 % (31-73); PLATELET COUNT 193 x10^3/uL (140-400); RED BLOOD COUNT 4.41 x10^6/uL (4.30-5.70); WHITE BLOOD COUNT 7.5 x10^3/uL (4.0-11.0)
--- NOTE | 2019-02-08 12:48 | PHYS DOC ---
Past Medical History Past Medical History: No Pertinent History Past Surgical History: Other Additional Past Surgical Histo: right knee. suprapubic catheter, cataracts, L HIP Alcohol Use: None Drug Use: None Adult General Chief Complaint Chief Complaint: LOWER EXTREMITY SWELLING and diarrhea HPI HPI 88 yo M presenting to the ED with darker feet bilaterally and rash on the feet bilaterally and diarrhea. This all started over the past 24 hours. He is otherwise healthy other than having chronic kidney disease. He denies any pain. His daughter is here with him who lives in [place] who brought him in for evaluation. Duration constant. The patient's swelling of the legs and darkness of the legs improves with elevation of the feet. Review of systems is negative for chest pain shortness of breath abdominal pain nausea vomiting fevers or chills. All other review of systems is negative unless otherwise noted in history of present illness. ED course: 88-year-old male presenting the emergency department today with bilateral leg swelling and a purple red rash on the legs bilaterally. In the emergency department we had him raising his legs which improved his swelling and redness significantly. On examination he does have a rash that is flaky with an erythematous border consistent with tinea pedis. Blood work obtained and at baseline. Pt will likely benefit from topical antifungal cream along with compression socks. He had 2 episodes of large volume diarrhea in the ED today. We will admit for IVFs and monitoring to Dr. Bravo whom I spoke with and accepts the pt for admission. Basic bridge orders placed. Review of Systems Review of Systems SEE ABOVE. Current Medications Current Medications Current Medications Medications (Trade) Dose Ordered Sig/Sumanth Start Time Stop Time Status Last Admin Dose Admin Morphine Sulfate (Morphine Sulfate) 2 mg PRN Q2HR PRN 02/08/19 14:00 02/09/19 13:59 Ondansetron HCl (Zofran) 4 mg PRN Q8HRS PRN 02/08/19 14:00 02/09/19 13:59 Sodium Chloride 1,000 ml @ 100 mls/hr Q10H 02/08/19 13:53 02/08/19 17:52 Allergies Allergies Allergies Coded Allergies Type Severity Reaction Last Updated Verified Sulfa (Sulfonamide Antibiotics) Allergy Intermediate Itching 09/12/17 Yes I S O L A T I O N *CONTACT* Allergy Unknown 09/16/17 Yes Physical Exam Physical Exam SEE ABOVE Constitutional: Well developed, well nourished, no acute distress, non-toxic appearance. HENT: Normocephalic, atraumatic, bilateral external ears normal, oropharynx moist, no oral exudates, nose normal. Eyes: PERRLA, EOMI, conjunctiva normal, no discharge. Neck: Normal range of motion, no tenderness, supple, no stridor. Cardiovascular:Heart rate regular rhythm, no murmur Lungs & Thorax: Bilateral breath sounds clear to auscultation [] Abdomen: Bowel sounds normal, soft, no tenderness, no masses, no pulsatile masses. Skin: Warm, dry, no erythema, no rash. Back: No tenderness, no CVA tenderness. [] Extremities: nontender feet bilaterally. Rash on feet as above. 1+ to trace edema on my examination. Otherwise knees are nontender bilaterally. Neurologic: Alert and oriented X 3, normal motor function, normal sensory function, no focal deficits noted. Psychologic: Affect normal, judgement normal, mood normal. Current Patient Data Vital Signs Vital Signs Date Time Temp Pulse Resp B/P (MAP) Pulse Ox O2 Delivery O2 Flow Rate FiO2 02/08/19 11:50 98.0 75 16 118/72 (87) 95 Room Air 98.0 Lab Values Laboratory Tests Test 02/08/19 11:45 White Blood Count 7.5 x10^3/uL (4.0-11.0) Red Blood Count 4.41 x10^6/uL (4.30-5.70) Hemoglobin 13.3 g/dL (13.0-17.5) Hematocrit 40.8 % (39.0-53.0) Mean Corpuscular Volume 93 fL (79-100) Mean Corpuscular Hemoglobin 30 pg (25-35) Mean Corpuscular Hemoglobin Concent 33 g/dL (31-37) Red Cell Distribution Width 15.0 % (11.5-14.5) H Platelet Count 193 x10^3/uL (140-400) Neutrophils (%) (Auto) 70 % (31-73) Lymphocytes (%) (Auto) 18 % (24-48) L Monocytes (%) (Auto) 7 % (0-9) Eosinophils (%) (Auto) 5 % (0-3) H Basophils (%) (Auto) 0 % (0-3) Neutrophils # (Auto) 5.3 x10^3uL (1.8-7.7) Lymphocytes # (Auto) 1.3 x10^3/uL (1.0-4.8) Monocytes # (Auto) 0.5 x10^3/uL (0.0-1.1) Eosinophils # (Auto) 0.4 x10^3/uL (0.0-0.7) Basophils # (Auto) 0.0 x10^3/uL (0.0-0.2) Sodium Level 141 mmol/L (136-145) Potassium Level 4.4 mmol/L (3.5-5.1) Chloride Level 103 mmol/L (98-107) Carbon Dioxide Level 29 mmol/L (21-32) Anion Gap 9 (6-14) Blood Urea Nitrogen 20 mg/dL (8-26) Creatinine 2.1 mg/dL (0.7-1.3) H Estimated GFR (Cockcroft-Gault) 29.9 BUN/Creatinine Ratio 10 (6-20) Glucose Level 100 mg/dL (70-99) H Calcium Level 9.4 mg/dL (8.5-10.1) Total Bilirubin 0.4 mg/dL (0.2-1.0) Aspartate Amino Transferase (AST) 15 U/L (15-37) Alanine Aminotransferase (ALT) 15 U/L (16-63) L Alkaline Phosphatase 50 U/L (46-116) Total Protein 7.8 g/dL (6.4-8.2) Albumin 3.3 g/dL (3.4-5.0) L Albumin/Globulin Ratio 0.7 (1.0-1.7) L Laboratory Tests 02/08/19 11:45 Laboratory Tests 02/08/19 11:45 EKG EKG [] Radiology/Procedures Radiology/Procedures [] Course & Med Decision Making Course & Med Decision Making Pertinent Labs and Imaging studies reviewed. (See chart for details) [] Dragon Disclaimer Dragon Disclaimer This electronic medical record was generated, in whole or in part, using a voice recognition dictation system. Departure Departure Impression: Primary Impression: Tinea pedis Additional Impression: Diarrhea Disposition: 01 HOME, SELF-CARE Condition: STABLE Referrals: MADY BRAVO MD (PCP) Patient Instructions: Athlete's Foot Problem Qualifiers LEDA PHAN MD Feb 08, 2019 12:48
[2019-02-08 12:50] LABS: CALCIUM 9.4 mg/dL (8.5-10.1); CREATININE 2.1 mg/dL (0.7-1.3); GFR 29.9; POTASSIUM 4.4 mmol/L (3.5-5.1)
[2019-02-08 12:56] LABS: ALBUMIN 3.3 g/dL (3.4-5.0); ALBUMIN/GLOBULIN RATIO 0.7 (1.0-1.7); TOTAL BILIRUBIN 0.4 mg/dL (0.2-1.0); TOTAL PROTEIN 7.8 g/dL (6.4-8.2)
[2019-02-08] MEDS ORDERED: FURO-69 PO (13:16)
[2019-02-08] MEDS ORDERED: CEPH-263 PO (13:16)
[2019-02-08] MEDS ORDERED: CLOT15CR4 TP (13:16)
[2019-02-08] MEDS ORDERED: IV NORMAL SALINE 1000ML BAG 1,000 ML IV SCH ×2 (13:53→22:30)
[2019-02-08] MEDS ORDERED: ONDANSETRON PF 4 MG/2 ML VIAL. IV PRN (14:00)
[2019-02-08] MEDS ORDERED: MORPHINE SULFATE 2 MG/ML VIAL. IV PRN (14:00)
[2019-02-08 16:01] VITALS: BP 148/85
[2019-02-08] MEDS ORDERED: CALC500T30 PO (17:19)
[2019-02-08 19:00] VITALS: BP 107/56
[2019-02-08 23:00] VITALS: BP 100/62
[2019-02-09 03:00] VITALS: BP 131/73
[2019-02-09 03:56] LABS: BASO % 0 % (0-3); EOS # 0.4 x10^3/uL (0.0-0.7); EOS % 6 % (0-3); HEMATOCRIT 38.3 % (39.0-53.0); HEMOGLOBIN 12.6 g/dL (13.0-17.5); LYMPH # 1.7 x10^3/uL (1.0-4.8); LYMPH % 23 % (24-48); MEAN CORPUSCULAR HEMOGLOBIN 30 pg (25-35); MEAN CORPUSCULAR HGB CONC 33 g/dL (31-37); MEAN CORPUSCULAR VOLUME 92 fL (79-100); MONO # 0.5 x10^3/uL (0.0-1.1); MONO % 7 % (0-9); NEUT # 4.8 x10^3uL (1.8-7.7); NEUT % 65 % (31-73); PLATELET COUNT 164 x10^3/uL (140-400); RED BLOOD COUNT 4.17 x10^6/uL (4.30-5.70); RED CELL DISTRIBUTION WIDTH 15.3 % (11.5-14.5); WHITE BLOOD COUNT 7.4 x10^3/uL (4.0-11.0)
[2019-02-09 04:10] LABS: CALCIUM 8.7 mg/dL (8.5-10.1); GFR 31.6
[2019-02-09 07:00] VITALS: BP 123/70
--- NOTE | 2019-02-09 08:25 | PDOC ---
Provider Note Provider Note [id number] MADY WEISS MD Feb 09, 2019 08:25
[2019-02-09] MEDS ORDERED: POTASSIUM CL 20MEQ D5-0.45NACL 1,000 ML IV ONE (08:30)
--- NOTE | 2019-02-09 08:45 | HP ---
ADMIT DATE: 02/08/2019 CHIEF COMPLAINT: Diarrhea. HISTORY OF PRESENT ILLNESS: A 58-year-old white male who lives alone, does urinary self-catheterization and has had increasing diarrhea, nonbloody in nature for the last 3-4 days. He has been mildly weak, but no abdominal pain, fever, chills, urinary symptoms, exposure to diarrhea, recent antibiotics or new recent medications. OTC medicine failed and he came to the ER and was admitted for IV fluids. He has also had an increasing rash on both feet and on the right hip for at least 2-3 weeks. PAST MEDICAL HISTORY: ALLERGY TO SULFA. He does home self-catheterizations. He takes no prescription medications. No other serious medical problems are known. He has chronic renal insufficiency, CKD 3B. GFR in the range of 30 last office visit. FAMILY HISTORY: Unremarkable. REVIEW OF SYSTEMS: No other complaints. OBJECTIVE: ENT: Eyelid diversion, which is chronic. Otherwise, generally unremarkable. NECK: No masses, nodes or bruits. LUNGS: Clear, without tachypnea. CARDIOVASCULAR: Regular rate. No irregular beat or murmur. ABDOMEN: Soft, benign and nontender. EXTREMITIES: He has circular erythematous scaly rash on the right posterior thigh and similar smaller circular rash with outer rim enhancement on the left lateral malleolus. All toenails are fungal and there is some interdigital inflammation and scaling on the right foot, mainly in both plantar surfaces. NEUROLOGIC: Physiologic. ASSESSMENT: 1. Ongoing diarrhea, etiology undetermined, likely viral in nature. 2. Tinea pedis, tinea unguium of the right thigh. 3. Chronic kidney disease 3, stable. PLAN: IV fluids. We will start Lamisil and await the stool studies. MADY WEISS MD DR: KERRIE/kitty JOB#: [id number] / [id number]
[2019-02-09] MEDS ORDERED: MULTIVITAMIN with MINERAL TABLET. PO SCH (09:00)
[2019-02-09] MEDS: TERBINAFINE 250 MG TABLET. PO SCH (09:04)
--- NOTE | 2019-02-09 10:22 | NUR ---
IP: Pt to be in contact plus precautions until stool for C.diff is verified. Pt to remain in contact precautions with a hx of mrsa in urine.
[2019-02-09 11:00] VITALS: BP 114/67
--- NOTE | 2019-02-09 13:16 | NUR ---
SW following pt for anticipated dc needs. Chart reviewed. Pt lives at home alone. No discharge recommendations/SW needs noted at this time. Will continue to follow.
[2019-02-09 15:00] VITALS: BP 114/67
--- NOTE | 2019-02-09 15:02 | NUR ---
C.Diff. negative, patient verb. understanding, C.Diff. Isolation discontinued, continue contact for history MRSA in urine. Patient verb. understanding POC.
--- NOTE | 2019-02-09 16:23 | NUR ---
Wound Care Pt seen for wound care consultation re: rash, plaque on feet, buttocks and coccyx. Pt's skin assessed, bilateral ankles and buttocks/jordy areas have a reddened, contiguous rash that appears to be fungal in nature, no wound care recs at this time. Instructed pt and family that pt probably needs an antifungal and possibly a dermatology consult, if rash does not clear up. POC discussed with DEMETRIA Fowler, who stated that it indeed is fungal and pt was started on Lamisil. WC will sign off at this time.
[2019-02-09 19:00] VITALS: BP 115/58
[2019-02-09 23:00] VITALS: BP 130/67
[2019-02-10 03:00] VITALS: BP 101/53
[2019-02-10 07:00] VITALS: BP 124/72
--- NOTE | 2019-02-10 08:03 | PDOC ---
Provider Note Provider Note [id number] MADY WEISS MD Feb 10, 2019 08:03
[2019-02-10] MEDS: TERBINAFINE 250 MG TABLET. PO SCH (08:17)
--- NOTE | 2019-02-10 08:26 | DS ---
DATE OF DISCHARGE: 02/10/2019 HOSPITAL SUMMARY: An 88-year-old white male with 2-3 days of increasing diarrhea, nonbloody in nature and general weakness. He was found to have fungal infections of both feet in the right lateral hip and fungal nails as well. C. diff stool was negative. CBC and chemistry profile normal with a creatinine of 2.0, which is normal baseline for him and the GFR was 30. He was given IV fluids and his diarrhea has lessened and he is comfortable at this time. He will be discharged later today if he decides to go home with family and follow up as an outpatient. Lamisil p.o. was started for the tinea corporis and tinea pedis with good tolerance so far. FINAL DIAGNOSES: 1. Acute viral gastroenteritis. 2. Tinea corporis and tinea pedis. OPERATIONS, PROCEDURES, COMPLICATIONS, AND CONSULTATIONS: None. DISPOSITION: He will take Lamisil 250 mg daily for 2 weeks. We will see him in the office in 1 week. Regular diet. Avoiding milk products for a few days because of the diarrhea. No other medications and office followup in 1 week. We will follow up with CKD as we have been following before as he does home straight cath under the direction of his urologist. MADY WEISS MD DR: KERRIE/nts JOB#: [id number] / [id number]
--- NOTE | 2019-02-10 08:39 | EKG ---
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
[2019-02-10 11:00] VITALS: BP 108/68
--- NOTE | 2019-02-10 14:35 | NUR ---
Discharge instructions and medications reviewed with patient, he states Dr. Bravo called prescription in for him. Patient verb. understanding all instructions and denies questions. Patient ready for discharge when his ride arrives.
[2019-02-10 15:00] VITALS: BP 110/69
--- NOTE | 2019-02-10 15:35 | NUR ---
Patient discharge to home with his daughter Olga with all belongings and instructions.
== END 2019-02-10 15:35 | disposition home or self-care (01) | DRG 392 ==
LOC: ER 11:20 → 5 NORTH 13:52 → OBSVTOIN 02-09 08:42
PROVIDERS: ADMIT Family Medicine; ATTEND Family Medicine
DX: A08.4 Viral intestinal infection, unspecified (principal); B35.3 Tinea pedis; B35.1 Tinea unguium; N18.3 Chronic kidney disease, stage 3 (moderate); B35.4 Tinea corporis; Z88.2 Allergy status to sulfonamides
CPT/HCPCS: 36415; 80048; 80053; 85025; 87493; 93005; A4314; G0378; G0379; J7030; 99285-25